=== PATIENT | female | born 1980 | race African-American/Black ===

== ENCOUNTER 2018-02-22 07:37 | Emergency (ER) | payer MEDICAID, OTHER ==
[~2018-02-22] VITALS: Ht 165.1 cm; Wt 90.0 kg
[~2018-02-22 07:37] MED LIST: PRENATALS
[2018-02-22 07:39] VITALS: BP 0/0
[2018-02-22] MEDS ORDERED: SODIUM CHLORIDE 0.9% 1,000 ML IV ONE (07:46)
[2018-02-22] MEDS ORDERED: DOPAMINE 400MG PREMIX 250 ML IV ONE (08:02)
[2018-02-22] MEDS ORDERED: ATROPINE SULFATE 1MG/10ML SYR ONE ×2 (08:03→15:58)
[2018-02-22] MEDS ORDERED: EPINEPHRINE 0.1MG/ML (1:10,000) 10ML SYR ONE ×2 (08:04→15:58)
[2018-02-22] MEDS ORDERED: SODIUM BICARBONATE 7.5% 0.9 MEQ/ML 50ML SYR IV ONE (15:58)
== END 2018-02-22 08:02 | disposition expired ==
LOC: ER 07:54 → CANBEDREQ 09:21
DX: I46.9 Cardiac arrest, cause unspecified (principal); I48.91 Unspecified atrial fibrillation; I45.10 Unspecified right bundle-branch block
CPT/HCPCS: 31500; 92950; 93005; 99291; J0461; J1265; J3490; J7030